=== PATIENT | male | born 1940 | race Caucasian/White ===

== ENCOUNTER 2017-12-06 12:53 | Emergency (ER) | payer MEDICARE, SELFPAY ==
[2017-12-06 13:02] VITALS: BP 101/45; PULSE 91; RESP 18; TEMP 36.8; O2SAT 94; BMI 25.9
--- NOTE | 2017-12-06 14:34 | [facility].EDGENADL ---
ED Disposition Clinical Impression: Abrasions of multiple sites Disposition: Home, Self-Care Condition on Discharge: Good Instructions: DI for Abrasion Additional Instructions: Change bandages twice daily, see your family MD in one to two days for recheck wounds; watch for infection; Tylenol as needed for pain; use nonstick dressings only to avoid painful dressing changes. Referrals: Ronit Isidro MD [Primary Care Provider] - - Critical Care Critical Care Time: No Attestation: On 12/06/17, the high probability of a clinically significant, sudden or life threatening deterioration of the following system(s) required my full and direct attention, intervention and personal management. The time I documented below is in addition to time spent performing reported procedures but includes the following listed in this critical care notation. Medical Decision Making Vital Signs: 12/06/17 13:02 Temperature 98.2 F Temperature Source Oral Pulse Rate [Right Brachial] 91 H Respiratory Rate 18 Blood Pressure [Right Arm] 101/45 Blood Pressure Mean [Right Arm] 63 Blood Pressure Source [Right Arm] Automatic Cuff Blood Pressure Position [Right Arm] Sitting 02 Sat by Pulse Oximetry 94 L Oxygen Delivery Method Room Air - Mikey Inquiry Pt receiving controlled substance: No General Adult HPI - General Chief complaint: Fall Stated complaint: AO 12/06/17 lac left arm and left leg hurting Mode of Arrival: Ambulatory Limitations: No Limitations Description of Symptoms (Recalled from ER Triage Doc. by RN): pt fell in parking lot at [employer] chasing his dog; laceration to right leg and left elbow - History of Present Illness HPI narrative: Fell on [place] with negative LOC. Prior to arrival. He tripped on dog. Sustained skin tears to left elbow and right lateral lower leg. No pain with weightbearing. No loss of motility; loss of sensation. Relieving factors: none Exacerbating factors: none - Related Data Home Medications Medication Instructions Recorded Confirmed Carvedilol [Carvedilol 25mg Tab] 12.5 mg PO BID 12/06/17 12/06/17 Clopidogrel Bisulfate [Plavix 75mg 75 mg PO DAILY 12/06/17 12/06/17 Tab] Isosorbide Mononitrate [Imdur 30mg 30 mg PO DAILY 12/06/17 12/06/17 ER tablet] Sitagliptin Phosphate [Januvia] 100 mg PO DAILY 12/06/17 12/06/17 Tamsulosin HCl [Flomax 0.4mg 0.4 mg PO DAILY 12/06/17 12/06/17 capsule] Allergies Allergy/AdvReac Type Severity Reaction Status Date / Time No Known Allergies Allergy Unverified 11/04/17 15:10 [facility] History Medical History: Reports:: Diabetes Mellitus Type 2 Denies:: Internal Pacemaker Other Surgeries: No: Pacemaker - *Social History Educational Level: Completed College Smoking Status: Former smoker Tobacco Type: cigarettes Smoking End Date: 27 years ago Alcohol Intake: never - Psychiatric History Expresses thoughts of harming self/others: None Suicide Plan Description: No Plan ROS Obtained: Yes All systems reviewed & no additional complaints Physical Exam - General General appearance: alert, in no apparent distress - Head Head exam: atraumatic, normocephalic, normal inspection - Eye Eye exam: Present: normal appearance, PERRL, EOMI - ENT ENT exam: Present: normal exam, normal oropharynx, mucous membranes moist, normal external ear exam - Neck Neck exam: Present: normal inspection, full ROM, trachea midline, meningismus. Absent: tenderness, lymphadenopathy - Chest Chest inspection: Present: normal inspection, symmetric chest wall rise. Absent: tenderness - Respiratory Respiratory exam: Absent: respiratory distress - Cardiovascular Cardiovascular exam: Present: other (No edema. Very refill brisk. Pulses full throughout.) - Extremities Exam Extremities exam: Present: full ROM. Absent: tenderness, normal capillary refill, pedal edema (Left elbow, shallow skin tear 10 cm in diameter with no foreign bodies or debris. C
[2017-12-06 15:26] VITALS: BP 123/71; PULSE 70; RESP 20
== END 2017-12-06 15:26 | disposition home or self-care (01) ==
PROVIDERS: Emergency Provider Emergency Medicine; Family Provider Internal Medicine Adolescent Medicine; PCP Emergency Medicine
DX: S50.312A Abrasion of left elbow, initial encounter (principal); S80.812A Abrasion, left lower leg, initial encounter; W01.0XXA Fall on same level from slipping, tripping and stumbling without subsequent striking against object, initial encounter; Y92.481 Parking lot as the place of occurrence of the external cause; Z79.899 Other long term (current) drug therapy; E11.9 Type 2 diabetes mellitus without complications; Z79.84 Long term (current) use of oral hypoglycemic drugs; Z95.0 Presence of cardiac pacemaker; Z87.891 Personal history of nicotine dependence
CPT/HCPCS: 99282

== ENCOUNTER 2019-01-08 18:02 | Inpatient (IN) ==
--- NOTE | 2019-01-08 18:15 | Emergency Department Note ---
ED Disposition Clinical Impression: Elevated troponin, Balanitis Cellulitis Qualifiers: Site of cellulitis: extremity Site of cellulitis of extremity: upper extremity Laterality: right Qualified Code(s): L03.113 - Cellulitis of right upper limb Vomiting Qualifiers: Vomiting type: unspecified Vomiting Intractability: non-intractable Nausea presence: with nausea Qualified Code(s): R11.2 - Nausea with vomiting, unspecified Disposition: Admitted as Observation Condition on Discharge: Fair - Critical Care Critical Care Time: No Attestation: On 01/08/19, the high probability of a clinically significant, sudden or life threatening deterioration of the following system(s) required my full and direct attention, intervention and personal management. The time I documented below is in addition to time spent performing reported procedures but includes the following listed in this critical care notation. Medical Decision Making - Mikey Inquiry Pt receiving controlled substance: No Vital Signs: 01/08/19 18:03 01/08/19 18:56 01/08/19 19:02 Temperature 100.5 F H Temperature Source Oral Pulse Rate [Left Radial] 113 H 107 H 110 H Respiratory Rate 16 Blood Pressure [Right Arm] 175/92 H 159/82 H 159/77 H Blood Pressure Mean [Right Arm] 119 107 104 Blood Pressure Source [Right Arm] Automatic Cuff Automatic Cuff Blood Pressure Position [Right Arm] Sitting Sitting 02 Sat by Pulse Oximetry 92 L 93 L 94 L Oxygen Delivery Method Room Air Nasal Cannula Oxygen Flow Rate (LPM) 2 01/08/19 20:00 Temperature Temperature Source Pulse Rate [Left Radial] 102 H Respiratory Rate 16 Blood Pressure [Right Arm] 157/93 H Blood Pressure Mean [Right Arm] 114 Blood Pressure Source [Right Arm] Automatic Cuff Blood Pressure Position [Right Arm] Supine 02 Sat by Pulse Oximetry 96 Oxygen Delivery Method Nasal Cannula Oxygen Flow Rate (LPM) 2 - Lab Data Lab Results 01/08/19 18:14: POC Glucose 227 H 01/08/19 18:20: WBC 16.4 H, RBC 5.22, Hgb 15.1, Hct 45.9, MCV 87.9, MCH 29.0, MCHC 33.0, RDW 14.3, Plt Count 143, MPV 9.2, Neut % (Auto) 87.9 H, Lymph % (Auto) 6.5 L, [place] % (Auto) 5.1, Eos % (Auto) 0.3, Baso % (Auto) 0.2, Neut # (Auto) 14.5 H, Lymph # (Auto) 1.1, [place] # (Auto) 0.8, Eos # (Auto) 0.1, Baso # ( Auto) 0.0, Total Counted 100, Neutrophils % (Manual) 82 H, Band Neutrophils % 12.0 H, Lymphocytes % (Manual) 6 L, Platelet Estimate Normal, RBC Morphology Normal 01/08/19 18:20: Sodium 141, Potassium 3.8, Chloride 104, Carbon Dioxide 24, Anion Gap 16.8 H, BUN 17, Creatinine 1.78 H, Estimated Creat Clear 40, Estimated GFR 37 L, Est GFR ( Amer) 45 L, Glucose 229 H, Calcium 8.9, Total Bilirubin 1.6 H, AST 7 L, ALT 20, Alkaline Phosphatase 73, Troponin I 0.12 H, Total Protein 7.6, Albumin 3.7, Globulin 3.9 H, Albumin/Globulin Ratio 0.9 L, Pl asma/Serum Alcohol < 3 01/08/19 18:20: Lactate 2.3 H 01/08/19 18:20: Influenza Type A Ag Negative, Influenza Type B Ag Negative 01/08/19 19:45: Urine Color Yellow, Urine Appearance Clear, Urine pH 5.5, Ur Specific Candor 1.015, Urine Protein Negative, Urine Glucose (UA) 3+, Urine Ketones 2+, Urine Blood Negative, Urine Nitrate Negative, Urine Bilirubin Negative, Urine Urobilinogen 0.2, Ur Leukocyte Esterase Negative, Urine RBC None, Urine WBC 3-5, Ur Squamous Epith Cells Occasional, Urine Bacteria Trace Result diagrams: 01/08/19 18:20 01/08/19 18:20 Orders (Tests/Meds): ED MEDICATIONS Generic Name Dose Route Start Last Admin Trade Name Freq PRN Reason Stop Dose Admin Sodium Chloride 1,000 mls @ 999 mls/hr 01/08/19 19:00 01/08/19 19:01 Sod Chlor 0.9% 1000ml Bag IV 01/08/19 20:00 999 mls/hr .Q1H1M KUMAR Administration Sodium Chloride 1,000 mls @ 999 mls/hr 01/08/19 19:30 01/08/19 19:57 Sod Chlor 0.9% 1000ml Bag IV 01/08/19 20:30 Not Given .Q1H1M KUMAR Sodium Chloride 2,590 mls @ 1,295 mls/hr 01/08/19 19:32 01/08/19 19:57 Sod Chlor 0.9% 1000ml Bag 30 ml/kg infuse over 2 hr (2590 ml) 01/08/19 21:31 1,295 mls/hr IV Administration .Q2H ONE Clindamycin Phosphate 600 mg/ 104 mls @ 104 mls/hr 01/08/19 20:00 Sodium Chloride IV 01/22/19 19:59 Q8H KUMAR Protocol Levofloxacin/Dextrose 750 mg in 150 mls @ 100 mls/hr 01/08/19 20:15 01/08/19 20:06 Levofloxacin 750mg/150ml Premix IV 01/22/19 20:14 100 mls/hr Q48H KUMAR Administration Protocol Sodium Chloride 10 ml 01/08/19 18:09 Saline Flush 10ml Syringe IV 02/07/19 18:08 NEEDED PRN Maintain IV Site Discontinued Medications Generic Name Dose Route Start Last Admin Trade Name Freq PRN Reason Stop Dose Admin Acetaminophen 650 mg 01/08/19 19:24 01/08/19 19:30 Acetaminophen 325mg Tab PO 01/08/19 19:25 650 mg ONCE ONE Administration Ondansetron HCl 4 mg 01/08/19 18:11 01/08/19 18:22 Zofran 4mg/2ml Vial IV 01/08/19 18:12 Not Given ONCE ONE ORDERS Category Date Time Status CT abdomen pelvis wo con Stat Cat Scan 01/08/19 18:[address] head/brain wo con Stat Cat Scan 01/08/19 18:09 Taken XR chest AP Stat Exams 01/08/19 18:16 Taken Urinalysis and Microscopic Stat Lab 01/08/19 19:45 Ordered Blood Culture Stat Micro 01/08/19 18:20 Received Wound Culture and Gram Stain Stat Micro 01/08/19 19:00 Ordered - CT Data CT Scan: Head, Abdomen, Pelvis Time Received: 19:[address] Reviewed: Yes: I have viewed the radiologist's interpretation Findings Narrative: CT scan interpreted by [facility] radiologist. Faxed report received and reviewed: Head: Age-related atrophy and chronic white matter ischemic changes, no evidence of acute intracranial abnormality. Mucosal thickening within the ethmoid air cells and right maxillary sinus area Abdomen and pelvis: Moderate enlargement of prostate, nonspecific. Bilateral renal cysts. Diverticulosis. - ECG Data Tracing #1 EKG interpreted by Raghavendra Watkins MD: Rhythm: sinus tachycardia Rate: 115 [place]: normal Ectopy: Premature atrial contractions Conduction: normal ST Segment Changes: none T Wave Changes: none Q Waves: none No evidence of acute ischemia or injury Prior electrocardiagrams reviewed. No change from prior tracings. - Physician Consults Physician Consulted: Eliz Time: 19:38 Reason -: Admission Comment/Response: Patient has a history of prostatitis and UTI. Obtain urine prior to administering antibiotics. Catheterize if necessary. Agrees to admit the patient to the hospital. We discussed the patient's clinical information, including history, exam, laboratory and radiology results and ED course. Per hospital procedure, I will write temporary bridge inpatient orders on the patient. Specific orders requested by the admitting physician: Levaquin and clindamycin. - Tissue Perfus/Sepsis Re-Eval Reperfusion Exam Performed: Yes Date Performed: 01/08/19 Time Performed: 20:07 Sepsis Follow-Up: Yes: Respiratory exam, Cardiovascular exam, Capillary refill, Peripheral pulse strength, Peripheral pulse location, Skin exam, Vital Signs - JUSTICE Score for Non-Stemi Age of Patient: 80-89 years old Heart Rate: 110-149 bpm Systolic Blood Pressure: 160-199 mmHg Serum Creatinine: 1.60-1.99 mg/dl CHF [place] Class: I-No CHF Other Risk Factors: None Non-Stemi Risk Score: 138 Medical Decision Narrative: Daughter, who is an RN and a pacemaker rep, called and I spoke with her. She states that the patient has diabetes, also the last time he was here he had renal insufficiency with a creatinine of 3. She also states that he had a cardiac cath several years ago that showed a 40% left main lesion. I reviewed his record. Saw him in this emergency department August 2017 at which time he was diagnosed with a ruptured appendix with intra-abdominal abscess and acute renal failure. He was transferred to [place] 7:30 PM: Daughter is now present. She says that she received a call earlier and stated that he was ashen, diaphoretic, and short of breath. She says he looks up to normal now. General Adult HPI - General Chief complaint: Nausea/Vomiting/Diarrhea Stated complaint: vomiting Time Seen by Provider: 01/08/19 18:10 Mode of Arrival: Ambulatory Limitations: No Limitations Description of Symptoms (Recalled from ER Triage Doc. by RN): to ed per pvt car with c/o vomiting starting at 3pm today pt denies any other symptoms. family reports pt became pale and "sweaty". cpta none - History of Present Illness HPI narrative: The patient was coming back to [place] today when he began getting red in the face and then began vomiting, multiple times. He reportedly became pale and sweaty. He denies headache, chest pain, abdominal pain. No diarrhea today but says he has had it intermittently in the past. States he feels slightly dizzy, describes it as a lightheadedness, not vertigo or spinning. As a red area on his right wrist that he says started yesterday. He thought it was an ingrown hair. He says he applied Neosporin. - Related Data Home Medications Medication Instructions Recorded Confirmed Carvedilol [Carvedilol 25mg Tab] 12.5 mg PO BID 12/06/17 01/08/19 Clopidogrel Bisulfate [Plavix 75mg 75 mg PO DAILY 12/06/17 01/08/19 Tab] Isosorbide Mononitrate [Imdur 30mg 30 mg PO DAILY 12/06/17 01/08/19 ER tablet] Sitagliptin Phosphate [Januvia] 100 mg PO DAILY 12/06/17 01/08/19 Tamsulosin HCl [Flomax 0.4mg 0.4 mg PO DAILY 12/06/17 01/08/19 capsule] Allergies Allergy/AdvReac Type Severity Reaction Status Date / Time No Known Allergies Allergy Unverified 11/04/17 15:10 [facility] History - Hepatitis A Screen Drug use history?: No High risk sexual behaviors?: No History of sexually transmitted infection?: No Currently employed?: No Childcare worker?: No Do you have indoor plumbing?: Yes Do you have electricity?: Yes Attestation statement:: This patient has been screened for Hepatitis A risk factors. Medical History: Reports:: Diabetes Mellitus Type 2 Denies:: Internal Pacemaker Other Surgeries: No: Pacemaker - Social History Smoking Status: Former smoker Tobacco Type: cigarettes Alcohol Intake: never Occupational Status: other - Psychiatric History Expresses thoughts of harming self/others: None Suicide Plan Description: No Plan ROS Obtained: Yes All systems reviewed & no additional complaints - Constitutional Constitutional: Denies chills, Denies fever(s) - ENT Ears, Nose, Mouth, and Throat: Denies nasal discharge, Denies sore throat - Cardiovascular Cardiovascular: Denies chest pain, Reports diaphoresis - Respiratory Respiratory: No cough, Yes dyspnea - Gastrointestinal Gastrointestingal: Reports: diarrhea, vomiting. Denies: abdominal pain - Genitourinary Male Genitourinary: Denies difficulty urinating, Denies flank pain - Integumentary/Breasts Comments: Has a rash on his penis. He is on some cream, 2 tubes, from Dr. Wellington for 2 weeks, but it does seem to be getting. He has had the same thing in the past, but it got better on cream at time. He is uncertain what the cream is, possibly an antifungal. - Neurologic Neurologic: Reports dizziness, Denies headache(s) Physical Exam - General General appearance: alert, in no apparent distress - Head Head exam: atraumatic, normocephalic, normal inspection - Eye Eye exam: Present: normal appearance, PERRL, EOMI. Absent: scleral icterus - ENT ENT exam: Present: normal exam, mucous membranes moist - Neck Neck exam: Present: normal inspection, full ROM, trachea midline. Absent: meningismus - Chest Chest inspection: Present: normal inspection, symmetric chest wall rise - Respiratory Respiratory exam: Present: normal lung sounds bilaterally. Absent: respiratory distress - Cardiovascular Cardiovascular exam: Present: normal rhythm, tachycardia, normal heart sounds - Abdominal Exam Abdominal exam: Present: soft. Absent: distention, tenderness - exam: Present: circumcised. Absent: testicular tenderness, urethral discharge, scrotal swelling - Expanded Exam Comment: Patchy area to the areas on distal penile shaft and glans with some maculopapular areas on the glans. Some small areas of exfoliation around the banegas of the glans. No discharge from lesions or from the urethra. No edema. Appears consistent with balanitis. - Expanded Upper Extremity Exam Right Comment: Band-Aid present on ulnar aspect of right wrist. When removed, there is seen to be an area of flat vesicle from which tiny amount of clear fluid can be expressed, surrounded by erythema approximately 7 cm diameter mild edema. Tender to palpation. Good range of motion of right wrist with some mild soreness. No joint effusion noted. - Neurological Exam Neurological exam: Present: alert, oriented X3, CN II-XII intact. Absent: nor mal gait (unsteady gait ), motor sensory deficit - Psychiatric Psychiatric exam: Present: normal affect, normal mood - Skin Skin exam: Present: warm, dry
[2019-01-08 18:34] LABS: Basophils % 0.2 % (0.1-2.0); Eosinophils # 0.1 K/mm3 (0.0-0.4); Eosinophils % 0.3 % (0.1-12.0); Hematocrit 45.9 % (42.0-52.0); Hemoglobin 15.1 g/dL (14.1-18.0); Lymphocytes # 1.1 K/mm3 (0.7-4.5); Lymphocytes % 6.5 % (10-50); Mean Corpuscular Volume 87.9 fl (80-94); Mean Platelet Volume 9.2 fl (7.4-10.4); Monocytes # 0.8 K/mm3 (0.1-1.0); Monocytes % 5.1 % (1.7-9.3); Neutrophils # 14.5 K/mm3 (1.8-7.8); Neutrophils % 87.9 % (37.0-80.0); Platelet Count 143 K/mm3 (142-424); Red Blood Count 5.22 M/mm3 (4.60-6.20); Red Cell Distribution Width 14.3 % (11.5-17.5); White Blood Count 16.4 K/mm3 (4.8-10.8)
[2019-01-08 18:52] LABS: Alanine Aminotransferase 20 U/L (12-78); Albumin Level 3.7 gm/dL (3.4-5.0); Albumin/Globulin Ratio 0.9 (1.1-1.8); Alkaline Phosphatase 73 U/L (46-116); Anion Gap 16.8 mEq/L (5-15); Aspartate Amino Transferase 7 U/L (15-37); Bilirubin,Total 1.6 mg/dL (0.2-1.0); Blood Urea Nitrogen 17 mg/dL (7-18); Calcium 8.9 mg/dL (8.5-10.1); Carbon Dioxide 24 mmol/L (21.0-32.0); Chloride 104 mmol/L (98-107); Ethyl Alcohol < 3 mg/dL (0-99); Globulin 3.9 gm/dl (1.3-3.2); Glucose 229 mg/dL (74-106); Potassium 3.8 mmoL/L (3.5-5.1); Sodium 141 mmol/L (136-145); Total Protein,Serum 7.6 gm/dL (6.4-8.2)
[2019-01-08 18:56] LABS: Lymphocytes % 6 % (10-50); Neutrophils % 82 % (42-76); RBC Morphology Normal; Total Cells Counted 100
[2019-01-08 19:49] LABS: Microscopic, Urine URINE MICROSCOPIC (MICROSCOPIC)
[2019-01-08 19:50] LABS: Appearance,Urine CLEAR (Clear); Bilirubin,Urine Negative (Negative); Blood, Urine Negative (Negative); Color,Urine YELLOW (Yellow); Glucose,Urine (UA) 3+ (Negative); Ketones,Urine 2+ (Negative); Leukocyte Esterase,Urine Negative (Negative); PH,Urine 5.5 (5.0-8.5); Protein,Urine Negative (Negative); Specific Gravity, Urine 1.015 (1.005-1.030); Urobilinogen,Urine 0.2 EU/dl (0.2)
[2019-01-08 19:56] LABS: Bacteria,Urine Trace /lpf; Squamous Epithelial Cell,Urine Occasional #/hpf (0-5)
[2019-01-09 06:33] LABS: Basophils % 0.1 % (0.1-2.0); Eosinophils % 0.1 % (0.1-12.0); Hematocrit 38.6 % (42.0-52.0); Lymphocytes # 1.7 K/mm3 (0.7-4.5); Mean Corpuscular HGB Conc 33.6 g/dL (31.8-35.4); Mean Corpuscular Volume 86.2 fl (80-94); Mean Platelet Volume 8.9 fl (7.4-10.4); Monocytes # 1.4 K/mm3 (0.1-1.0); Monocytes % 7.9 % (1.7-9.3); Neutrophils # 14.2 K/mm3 (1.8-7.8); Neutrophils % 81.8 % (37.0-80.0); Platelet Count 112 K/mm3 (142-424); Red Blood Count 4.48 M/mm3 (4.60-6.20); Red Cell Distribution Width 14.3 % (11.5-17.5); White Blood Count 17.3 K/mm3 (4.8-10.8)
[2019-01-09 06:40] LABS: Anion Gap 16.5 mEq/L (5-15); Potassium 3.5 mmoL/L (3.5-5.1)
[2019-01-09 07:43] LABS: Lymphocytes % 5 % (10-50); Monocytes % 6 % (2-9); Neutrophils % 82 % (42-76); Total Cells Counted 100
[2019-01-09 07:44] LABS: RBC Morphology Normal
--- NOTE | 2019-01-09 08:10 | History & Physical Report ---
*Admission Date: 01/08/19 *Chief complaint: Nausea/vomiting/fever *History of present illness: 78-year-old white male with multiple medical problems who presented to the emergency department with febrile illness and vomiting. He had been enjoying fairly good health and active status over the last couple of weeks and went to [place] on the day of admission with some friends and on the way home became acutely and suddenly ill with vomiting and abdominal pain and feelings of presyncope. Brought to the emergency department where he was found to have fever, but his vomiting had stopped and he felt less syncopal. Workup in the ER showed elevated white blood cell count and minimally elevated lactate level as well as minimal prerenal azotemia but no other source of infection including CT scan of chest/abdomen/pelvis and a negative CT of his head that was done because of syncope and some dizziness. He was found to have cellulitis on the right wrist that he states has been there for 3 or 4 days. He thought he had a spot consistent with an ingrown hair 3 or 4 days ago and washed it and placed near an ointment on the lesion and then covered it with an occlusive bandage. He notices it is become markedly worse over the last couple of days and has become extremely painful. This lesion was cultured. Because of his fever and lab abnormalities he was admitted to hospital for IV antibiotics while we await further delineation of the cause of the febrile illness. [facility] History I have reviewed the patient's past medical history: Yes Medical History: Reports:: Diabetes Mellitus Type 2, Hypertension Denies:: Cancer, Internal Pacemaker, MRSA *Have you ever received a pneumonia vaccine?: Yes *Have you received a flu vaccine this season?: Yes Other Medical History: Reports: Arthritis Other Surgeries: Yes: Appendectomy, Cardiac Catheterization, Colonoscopy. No: Pacemaker Amputation: No Fractures: Yes ((L) shoulder) - *Social History Educational Level: Attended College Smoking Status: Former smoker Tobacco Type: cigarettes # Packs/Day (cigarettes): 3 Alcohol Intake: never *Occupational Status:: retired Housing: apartment Household Members: none *Travel in the last 8 weeks: None - Psychiatric History Expresses thoughts of harming self/others: None Suicide Plan Description: No Plan Family Hx:: Diabetes, Heart Attack, Hyperlipidemia, Hypertension, Stroke Review of Systems - Review of Systems Review of systems:: pertinent systems reviewed and negative unless documented below - Constitutional Reports fever(s), Denies anorexia, Denies body ache(s), Denies chills - Eyes Denies blind spots, Denies blurry vision, Denies change in vision - ENT Denies abnormal hearing, Denies bleeding gums - *Cardiovascular Denies chest pain, Denies shortness of breath, Denies generalized swelling, Denies irregular heart rhythm - *Respiratory Denies change in phlegm color, Denies chest congestion, Denies cough, Denies shortness of breath - *Gastrointestinal Reports abdominal pain, Denies change in bowel habits, Denies change in stools, Denies coffee ground vomit, Denies loose stools, Denies vomiting blood, Denies bright, red blood in stools, Denies pain with swallowing, Denies constant urge to pass stool - *Genitourinary Denies difficulty urinating - *Musculoskeletal Reports muscle weakness, Denies abnormal walking, Denies joint pain - Integumentary/Breasts Reports changing lesions, Reports redness, Denies acne, Denies hair loss, Denies change in skin color - *Neurologic Reports dizziness, Denies headache(s), Denies seizure-like activity - Psychiatric Denies abnormal sleep pattern - Endocrine Denies cold intolerance, Denies excessive sweating Meds Home Medications Medication Instructions Recorded Confirmed Type Carvedilol [Carvedilol 25mg Tab] 12.5 mg PO BID 12/06/17 01/08/19 History Clopidogrel Bisulfate [Plavix 75mg 75 mg PO DAILY 12/06/17 01/08/19 History Tab] Sitagliptin Phosphate [Januvia] 100 mg PO DAILY 12/06/17 01/08/19 History Tamsulosin HCl [Flomax 0.4mg 0.4 mg PO DAILY 12/06/17 01/08/19 History capsule] Isosorbide Mononitrate [Imdur 30mg 30 mg PO DAILY 01/08/19 01/08/19 History ER tablet] Allergies Allergy/AdvReac Type Severity Reaction Status Date / Time No Known Allergies Allergy Unverified 11/04/17 15:10 Exam Vital signs and Labs for Last 24 Hours: Temp Pulse Resp BP Pulse Ox 98.9 F 101 H 20 131/68 96 01/09/19 04:00 01/09/19 04:00 01/09/19 04:00 01/09/19 04:00 01/09/19 04:00 Laboratory Results - last 24 hr 01/08/19 18:14: POC Glucose 227 H 01/08/19 18:20: WBC 16.4 H, RBC 5.22, Hgb 15.1, Hct 45.9, MCV 87.9, MCH 29.0, MCHC 33.0, RDW 14.3, Plt Count 143, MPV 9.2, Neut % (Auto) 87.9 H, Lymph % (Auto) 6.5 L, [place] % (Auto) 5.1, Eos % (Auto) 0.3, Baso % (Auto) 0.2, Neut # (Auto) 14.5 H, Lymph # (Auto) 1.1, [place] # (Auto) 0.8, Eos # (Auto) 0.1, Baso # (Auto) 0.0, Total Counted 100, Neutrophils % (Manual) 82 H, Band Neutrophils % 12.0 H, Lymphocytes % (Manual) 6 L, Platelet Estimate Normal, RBC Morphology Normal 01/08/19 18:20: Sodium 141, Potassium 3.8, Chloride 104, Carbon Dioxide 24, Anion Gap 16.8 H, BUN 17, Creatinine 1.78 H, Estimated Creat Clear 40, Estimated GFR 37 L, Est GFR ( Amer) 45 L, Glucose 229 H, Calcium 8.9, Total Bilirubin 1.6 H, AST 7 L, ALT 20, Alkaline Phosphatase 73, Troponin I 0.12 H, Total Protein 7.6, Albumin 3.7, Globulin 3.9 H, Albumin/Globulin Ratio 0.9 L, Plasma/Serum Alcohol < 3 01/08/19 18:20: Lactate 2.3 H 01/08/19 18:20: Influenza Type A Ag Negative, Influenza Type B Ag Negative 01/08/19 19:45: Urine Color Yellow, Urine Appearance Clear, Urine pH 5.5, Ur Specific [place] 1.015, Urine Protein Negative, Urine Glucose (UA) 3+, Urine Ketones 2+, Urine Blood Negative, Urine Nitrate Negative, Urine Bilirubin Negative, Urine Urobilinogen 0.2, Ur Leukocyte Esterase Negative, Urine RBC None, Urine WBC 3-5, Ur Squamous Epith Cells Occasional, Urine Bacteria Trace 01/08/19 21:25: POC Glucose 225 H 01/08/19 22:18: Lactate 2.0 01/08/19 23:20: Troponin I 0.11 H 01/09/19 02:15: Troponin I 0.11 H 01/09/19 05:49: POC Glucose 150 H 01/09/19 06:18: WBC 17.3 H, RBC 4.48 L, Hgb 13.0 L D, Hct 38.6 L, MCV 86.2, MCH 29.0, MCHC 33.6, RDW 14.3, Plt Count 112 L, MPV 8.9, Neut % (Auto) 81.8 H, Lymph % (Auto) 10.0, [place] % (Auto) 7.9, Eos % (Auto) 0.1, Baso % (Auto) 0.1, Neut # (Auto) 14.2 H, Lymph # (Auto) 1.7, [place] # (Auto) 1.4 H, Eos # (Auto) 0.0, Baso # (Auto) 0.0, Total Counted 100, Neutrophils % (Manual) 82 H, Band Neutrophils % 5.0, Lymphocytes % (Manual) 5 L, Atypical Lymphs % 2.0, Monocytes % (Manual) 6, Platelet Estimate Slight decrease, RBC Morphology Normal 01/09/19 06:18: Sodium 142, Potassium 3.5, Chloride 108 H, Carbon Dioxide 21, Anion Gap 16.5 H, BUN 16, Creatinine 1.47 H, Estimated Creat Clear 49, Estimated GFR 46 L, Est GFR ( Amer) 56 L D, Glucose 152 H D, Calcium 8.0 L D I & O for Last 24 hours: Intake & Output 01/06/19 01/07/19 01/08/19 01/09/19 11:59 11:59 11:59 11:59 Intake Total 976 / 976 Balance 976 / 976 Weight 189 lb 8 oz Microbiology Reports for the Last 24 Hours: Microbiology 01/08/19 19:00 Wrist - Right Gram Stain - Final Narrative: Patient is awake, alert, states that he feels much better than he did on presentation to the emergency department. He is alert, oriented x3. Oropharynx clear. No sinus tenderness. No JVD. No cervical or supraclavicular lymphadenitis. Lungs are clear. Heart rate regular without murmurs. Abdomen soft and nontender. No peripheral edema or clubbing. Cranial nerves are symmetric. He can move all arms and legs well. His right wrist has an extremely painful erysipelas-looking lesion that is approximately 6 cm x 5 cm in a roughly rectangular patch on the dorsal/ulnar aspect of the right wrist. There is a very small rounded sloughing lesion at the distal edge of the erysipelas patch but no active drainage. There is no red streaking. No fluctuance or boil formation. Legal Consultant strength is normal in the hand. Radial and ulnar pulses are normal. Left wrist is normal. No other infectious type lesions or other lesions over and above age-related/benign-appearing moles. Assessment and Plan (1) Acute febrile illness Current visit: Yes Status: Acute Category: Medical Code(s): R50.9 - Fever, unspecified Radiographic studies negative. Await blood cultures. Urinalysis looks clean. Possible source of cellulitis. (2) Cellulitis Current visit: Yes Status: Acute Qualifiers: Site of cellulitis: extremity Site of cellulitis of extremity: upper extremity Laterality: right Qualified Code(s): L03.113 - Cellulitis of right upper limb Category: Medical Code(s): L03.90 - Cellulitis, unspecified Patient on Levaquin and clindamycin. Cultures from cellulitis area pending. Will stop Neosporin as this could possibly be an allergic reaction. Triamcinolone on the lesion for comfort. Check x-ray of the wrist and sed rate today (3) Elevated troponin Current visit: Yes Status: Acute Category: Medical Code(s): R74.8 - Abnormal levels of other serum enzymes No change overnight, indeterminate levels appears to be at patient's baseline (4) Vomiting Current visit: Yes Status: Acute Qualifiers: Vomiting type: unspecified Vomiting Intractability: non-intractable Nausea presence: with nausea Qualified Code(s): R11.2 - Nausea with vomiting, unspecified Category: Medical Code(s): R11.10 - Vomiting, unspecified Resolved. Patient eating comfortably this morning. (5) Diabetes type 2, controlled Current visit: Yes Status: Acute Category: Medical Code(s): E11.9 - Type 2 diabetes mellitus without complications Complicates care especially with infectious issues. Monitor closely. (6) Leukocytosis Current visit: Yes Status: Acute Category: Medical Code(s): D72.829 - Elevated white blood cell count, unspecified Probably related to cellulitis/febrile illness as above, monitor tomorrow.
--- NOTE | 2019-01-09 08:22 | Pharmacy Consult Notes ---
[facility] Pharmacy VTE Monitoring - Patient Demographics Admission date: 01/08/19 Report Date: 01/09/19 Time: 08:22 Allergies/Adverse Reactions: Patient Allergies No Known Allergies Allergy (Unverified 11/04/17 15:10) Height: 1.8 m Weight: 85.956 kg Patient Problems: Current Active Problems Cellulitis (Acute) Elevated troponin (Acute) Vomiting (Acute) Balanitis (Acute) Acute febrile illness (Acute) Diabetes type 2, controlled (Acute) Leukocytosis (Acute) - VTE Risk Labs: VTE Related Lab Results Hgb 13.0 g/dL (14.1-18.0) L D 01/09/19 06:18 Hct 38.6 % (42.0-52.0) L 01/09/19 06:18 Plt Count 112 K/mm3 (142-424) L 01/09/19 06:18 BUN 16 mg/dL (7-18) 01/09/19 06:18 Creatinine 1.47 mg/dL (0.70-1.30) H 01/09/19 06:18 Estimated Creat Clear 49 mL/min (50-200) 01/09/19 06:18 VTE Risk Level: Low Risk - Prophylaxis VTE Prophylaxis Ordered?: Yes Types of VTE Prophylaxis: TEDS Knee High Location of Applied Device: Bilateral Lower Extremeties - VTE Diagnosis Confirmed Treatment or plan recommended: Continue Current Treatment
[2019-01-10 06:50] LABS: Basophils % 0.2 % (0.1-2.0); Eosinophils # 0.2 K/mm3 (0.0-0.4); Eosinophils % 1.2 % (0.1-12.0); Hematocrit 33.8 % (42.0-52.0); Hemoglobin 11.5 g/dL (14.1-18.0); Lymphocytes # 1.9 K/mm3 (0.7-4.5); Lymphocytes % 15.1 % (10-50); Mean Corpuscular Hemoglobin 29.2 pg (27.0-31.2); Mean Platelet Volume 8.7 fl (7.4-10.4); Monocytes # 0.7 K/mm3 (0.1-1.0); Monocytes % 5.5 % (1.7-9.3); Neutrophils # 9.6 K/mm3 (1.8-7.8); Neutrophils % 77.9 % (37.0-80.0); Platelet Count 108 K/mm3 (142-424); Red Blood Count 3.94 M/mm3 (4.60-6.20); Red Cell Distribution Width 14.2 % (11.5-17.5); White Blood Count 12.3 K/mm3 (4.8-10.8)
[2019-01-10 06:54] LABS: Albumin Level 2.5 gm/dL (3.4-5.0); Albumin/Globulin Ratio 0.8 (1.1-1.8); Anion Gap 14.5 mEq/L (5-15); Bilirubin,Total 1.2 mg/dL (0.2-1.0); Calcium 7.9 mg/dL (8.5-10.1); Potassium 3.5 mmoL/L (3.5-5.1); Total Protein,Serum 5.5 gm/dL (6.4-8.2)
--- NOTE | 2019-01-10 08:07 | Progress Note ---
Internal Medicine - PN: Subj *Date: 01/10/19 *Time: 08:04 Interval history: Overall patient feels better, no vomiting. No pains. No disorientation. No feelings of presyncope. His right wrist continues to be painful but he notes that it is less so and the area of redness is less after triamcinolone treatment. I reviewed radiology results and discussed case with radiologist about his CT scan of wrist from yesterday. Exam Vital signs and Labs for Last 24 Hours: Temp Pulse Resp BP Pulse Ox 98.3 F 84 18 139/73 92 L 01/10/19 07:44 01/10/19 07:44 01/10/19 07:44 01/10/19 07:44 01/10/19 07:44 Laboratory Results - last 24 hr 01/09/19 06:18: ESR 22 H 01/09/19 09:42: Stl Aeromonas (PCR) Not detected, Stl C. cayetanensis PCR Not detected, Stool Rotavirus (PCR) Not detected, Stl Adenov F 40/41 PCR Not detected, Stool Astrovirus (PCR) Not detected, Stool Campylobacter PCR Not detected, Stl C.difficile Tox PCR Not detected, Stool Cryptosporidium PCR Not detected, Stl E.coli Shiga Tox PCR Not detected, Stool E coli O157 PCR Not detected, Stl Enterotoxigenic E PCR Not detected, Stool EPEC (PCR) Not detected, Stool EAEC (PCR) Not detected, Stl E. histolytica PCR Not detected, Stool Giardia Lamblia PCR Not detected, Stool Salmonella PCR Not detected, Stool Sapovirus (PCR) Not detected, Stl P. shigelloides PCR Not detected, Stl Shigella/EIEC PCR Not detected, St Y.enterocolitica PCR Not detected, Stool Vibrio (PCR) Not detected, Stl Vibrio cholerae PCR Not detected, Stl Norovirus GI/GII PCR Not detected 01/09/19 12:06: POC Glucose 145 H 01/09/19 17:06: POC Glucose 131 H 01/09/19 20:38: POC Glucose 137 H 01/10/19 06:21: WBC 12.3 H D, RBC 3.94 L, Hgb 11.5 L, Hct 33.8 L, MCV 86.0, MCH 29.2, MCHC 34.0, RDW 14.2, Plt Count 108 L, MPV 8.7, Neut % (Auto) 77.9, Lymph % (Auto) 15.1, [place] % (Auto) 5.5, Eos % (Auto) 1.2, Baso % (Auto) 0.2, Neut # (Auto) 9.6 H, Lymph # (Auto) 1.9, [place] # (Auto) 0.7, Eos # (Auto) 0.2, Baso # (Auto) 0.0 01/10/19 06:21: Sodium 141, Potassium 3.5, Chloride 110 H, Carbon Dioxide 20 L, Anion Gap 14.5, BUN 16, Creatinine 1.31 H, Estimated Creat Clear 55, Estimated GFR 53 L, Est GFR ( Amer) 64, Glucose 109 H, Calcium 7.9 L, Total Bilirubin 1.2 H, AST 9 L D, ALT 14 D, Alkaline Phosphatase 50, Total Protein 5.5 L D, Albumin 2.5 L, Globulin 3.0, Albumin/Globulin Ratio 0.8 L 01/10/19 06:25: POC Glucose 110 I & O for Last 24 hours: Intake & Output 01/07/19 01/08/19 01/09/19 01/10/19 11:59 11:59 11:59 11:59 Intake Total 1296 / 1296 840 / 840 Output Total 400 / 400 Balance 1296 / 1296 440 / 440 Weight 189 lb 8 oz Microbiology Reports for the Last 24 Hours: Microbiology 01/08/19 19:00 Wrist - Right Gram Stain - Final 01/08/19 19:00 Wrist - Right Wound Culture - Preliminary Gram Positive Cocci Narrative: Patient is pleasant, alert, oriented x3. Heart rate regular. Soft, nontender. Lungs are clear bilaterally with good air movement. He has no edema in his left hand or both feet, able of all extremities well and has no symmetric neurologic deficits. His right wrist is swollen and tender from the MCP joints into the ulnar aspect of the dorsal aspect of the wrist. The red area previously described is less intensely red and slightly smaller but still very prominent. Assessment and Plan (1) Acute febrile illness Current visit: Yes Status: Acute Category: Medical Code(s): R50.9 - Fever, unspecified (2) Cellulitis Current visit: Yes Status: Acute Qualifiers: Site of cellulitis: extremity Site of cellulitis of extremity: upper extremity Laterality: right Qualified Code(s): L03.113 - Cellulitis of right upper limb Category: Medical Code(s): L03.90 - Cellulitis, unspecified (3) Elevated troponin Current visit: Yes Status: Acute Category: Medical Code(s): R74.8 - Abnormal levels of other serum enzymes (4) Vomiting Current visit: Yes Status: Acute Qualifiers: Vomiting type: unspecified Vomiting Intractability: non-intractable N ausea presence: with nausea Qualified Code(s): R11.2 - Nausea with vomiting, unspecified Category: Medical Code(s): R11.10 - Vomiting, unspecified (5) Diabetes type 2, controlled Current visit: Yes Status: Acute Category: Medical Code(s): E11.9 - Type 2 diabetes mellitus without complications (6) Leukocytosis Current visit: Yes Status: Acute Category: Medical Code(s): D72.829 - Elevated white blood cell count, unspecified - Assessment and plan all Dx Assessment and Plan for all problems:: Overall patient status seems improved. Kidney function is improved, fever curve has improved. White count is down. X-rays and CT scan reports have raised concern about osteomyelitis in the hand. We will obtain MRI or bone scanning tomorrow and involve orthopedics at that point. Continue antibiotics at this point. May change to a once daily antibiotic regimen depending on need for ongoing therapy based on osteomyelitis evaluation tomorrow.
--- NOTE | 2019-01-11 08:01 | Progress Note ---
Internal Medicine - PN: Subj *Date: 01/11/19 *Time: 07:59 Interval history: Overall patient feels well. No complaints of chest pressure shortness of air, no complaints of urine or stool change. Continues to complain of right wrist pain but notes it slightly improved. Exam Vital signs and Labs for Last 24 Hours: Temp Pulse Resp BP Pulse Ox 98.1 F 76 18 146/78 H 95 01/11/19 07:15 01/11/19 07:15 01/11/19 07:15 01/11/19 07:15 01/11/19 07:15 Laboratory Results - last 24 hr 01/10/19 11:13: POC Glucose 104 01/10/19 16:28: POC Glucose 106 01/10/19 20:56: POC Glucose 145 H 01/11/19 05:52: POC Glucose 116 H I & O for Last 24 hours: Intake & Output 01/08/19 01/09/19 01/10/19 01/11/19 11:59 11:59 11:59 11:59 Intake Total 1296 / 1296 840 / 840 7403 / 7403 Output Total 400 / 400 1950 / 1950 Balance 1296 / 1296 440 / 440 5453 / 5453 Weight 189 lb 8 oz Microbiology Reports for the Last 24 Hours: Microbiology 01/08/19 19:00 Wrist - Right Gram Stain - Final 01/08/19 19:00 Wrist - Right Wound Culture - Final Staphylococcus epidermidis 01/08/19 18:20 Blood Blood Culture - Preliminary NO GROWTH AFTER 48 HOURS 01/08/19 18:20 Blood Blood Culture - Preliminary NO GROWTH AFTER 48 HOURS Narrative: Awake, alert. Oriented x3. Pharynx clear, no JVD. Lung clear in the anterior and posterior george. Heart rate regular. No murmurs. Abdomen soft. No pedal edema. Right wrist is slightly less swollen but remains unchanged in regards to the cellulitis component. Assessment and Plan (1) Acute febrile illness Current visit: Yes Status: Acute Category: Medical Code(s): R50.9 - Fever, unspecified (2) Cellulitis Current visit: Yes Status: Acute Qualifiers: Site of cellulitis: extremity Site of cellulitis of extremity: upper extremity Laterality: right Qualified Code(s): L03.113 - Cellulitis of right upper limb Category: Medical Code(s): L03.90 - Cellulitis, unspecified (3) Elevated troponin Current visit: Yes Status: Acute Category: Medical Code(s): R74.8 - Abnormal levels of other serum enzymes (4) Vomiting Current visit: Yes Status: Acute Qualifiers: Vomiting type: unspecified Vomiting Intractability: non-intractable Nausea presence: with nausea Qualified Code(s): R11.2 - Nausea with vomiting, unspecified Category: Medical Code(s): R11.10 - Vomiting, unspecified (5) Diabetes type 2, controlled Current visit: Yes Status: Acute Category: Medical Code(s): E11.9 - Type 2 diabetes mellitus without complications (6) Leukocytosis Current visit: Yes Status: Acute Category: Medical Code(s): D72.829 - Elevated white blood cell count, unspecified - Assessment and plan all Dx Assessment and Plan for all problems:: Suspicious findings x-ray and see for osteomyelitis. Plan will be to do MRI today -long-term IV antibiotics if this indicates osteomy this. If negative for osteomyelitis will transition to p.o. antibiotics and plan for outpatient therapy.
--- NOTE | 2019-01-11 16:20 | Discharge Summary ---
General - General Admission date:: 01/09/19 Discharge date: 01/11/19 HPI HPI: 78-year-old white male with multiple medical problems who presented to the emergency department with febrile illness and vomiting. He had been enjoying fairly good health and active status over the last couple of weeks and went to [place] on the day of admission with some friends and on the way home became acutely and suddenly ill with vomiting and abdominal pain and feelings of presyncope. Brought to the emergency department where he was found to have fever, but his vomiting had stopped and he felt less syncopal. Workup in the ER showed elevated white blood cell count and minimally elevated lactate level as well as minimal prerenal azotemia but no other source of infection including CT scan of chest/abdomen/pelvis and a negative CT of his head that was done because of syncope and some dizziness. He was found to have cellulitis on the right wrist that he states has been there for 3 or 4 days. He thought he had a spot consistent with an ingrown hair 3 or 4 days ago and washed it and placed near an ointment on the lesion and then covered it with an occlusive bandage. He notices it is become markedly worse over the last couple of days and has become extremely painful. This lesion was cultured. Because of his fever and lab abnormalities he was admitted to hospital for IV antibiotics while we await further delineation of the cause of the febrile i llness. Hospital Course Hospital Course: Patient was admitted, antibiotics were started, patient improved very nicely with fluids and antibiotics, and blood cultures, sputum cultures and urine cultures were negative. Serologic testing for influenza was also negative. Culture of right wrist wound revealed staph epidermidis, considered to be a contaminant. X-ray of the wrist showed possible osteomyelitis, CT scan done over the weekend also was indeterminate and patient was subjected to MRI scanning today which revealed "no convincing evidence of osteomyelitis." Patient's improvement was very nice, ate and drank well over the last couple of days with no fevers and leukocytosis improved. Patient will be discharged with p.o. antibiotics and ointments for cellulitis with close follow-up in my office on Friday. Objective Vital signs: Temp Pulse Resp BP Pulse Ox 97.6 F 94 H 17 136/64 96 01/11/19 15:55 01/11/19 15:55 01/11/19 15:55 01/11/19 15:55 01/11/19 15:55 Narrative: Patient is alert. Pleasant. Oriented x3. Able to get up, walk around the room , urinating and having normal bowel movements. Heart rate regular. Lungs clear. Abdomen soft, no edema or clubbing. Wrist exam improving. See notes from this morning. Results Labs on day of discharge: Labs from last 24 hours 01/11/19 01/10/19 01/10/19 05:52 20:56 16:28 POC Glucose 116 H 145 H 106 Preliminary micro results at discharge 01/08/19 18:20 Blood Culture - Preliminary Blood NO GROWTH AFTER 48 HOURS 01/08/19 18:20 Blood Culture - Preliminary Blood NO GROWTH AFTER 48 HOURS DS: Diagnosis - Discharge Diagnosis (1) Acute febrile illness Status: Resolved (2) Cellulitis Status: Acute (3) Elevated troponin Status: Resolved (4) Vomiting Status: Resolved (5) Diabetes type 2, controlled Status: Chronic (6) Leukocytosis Status: Resolved Discharge Plan - Patient Discharge Instructions ACTIVITY: Continue current activity DIET: continue same diet Patient Instructions: Cardiac Troponin, Cellulitis, DI for Vomiting -- Adult, Nausea and Vomiting-Adult - Follow up Plan Follow up with: Nigel Wellington MD [Primary Care Provider] - 01/15/19 Disposition: Home, Self-Usp Medications: Home Medications Medication Instructions Recorded Confirmed Type Carvedilol [Carvedilol 25mg Tab] 12.5 mg PO BID 12/06/17 01/08/19 History Clopidogrel Bisulfate [Plavix 75mg 75 mg PO DAILY 12/06/17 01/08/19 History Tab] Sitagliptin Phosphate [Januvia] 100 mg PO DAILY 12/06/17 01/08/19 History Isosorbide Mononitrate [Imdur 30mg 30 mg PO DAILY 01/08/19 01/08/19 History ER tablet] Simvastatin 40 mg PO HS 01/09/19 01/09/19 History Cefdinir [Omnicef 300mg Capsule] 300 mg PO BID #14 cap 01/11/19 Rx Mupirocin [Mupirocin 2% UD oint 1 gm TP TID #7 applic 01/11/19 Rx 1gm Topical syr] Prescriptions/Medication Reconciliation: New Mupirocin [Mupirocin 2% UD oint 1gm Topical syr] 1 gm TP TID #7 applic Cefdinir [Omnicef 300mg Capsule] 300 mg PO BID #14 cap Continue Sitagliptin Phosphate [Januvia] 100 mg PO DAILY Clopidogrel Bisulfate [Plavix 75mg Tab] 75 mg PO DAILY Carvedilol [Carvedilol 25mg Tab] 12.5 mg PO BID Isosorbide Mononitrate [Imdur 30mg ER tablet] 30 mg PO DAILY Simvastatin 40 mg PO HS
== END 2019-01-11 16:54 | disposition home or self-care (01) | DRG 603 ==
LOC: ER 18:02 → 2ND 18:02
PROVIDERS: ADMIT Internal Medicine Adolescent Medicine; ATTEND Internal Medicine Adolescent Medicine
CPT/HCPCS: 36415; 70450; 71010; 71045; 73110; 73200; 73223; 74176; 80048; 80053; 81001; 82962; 83605; 84484; 85007; 85025; 85651; 87040; 87070; 87077; 87186; 87205; 87275; 87276; 87506; 93005; 96365; 96366; 99285; A9576; G0378; J1956

== ENCOUNTER 2019-05-23 17:37 | Observation (INO) ==
--- NOTE | 2019-05-23 17:59 | Emergency Department Note ---
ED Disposition Condition on Discharge: Fair - Critical Care Critical Care Time: No <SapphiremosheAmarilismalvin - Last Filed: 05/23/19 20:06> <Raghavendra Watkins - Last Filed: 05/23/19 21:56> Clinical Impression: Elevated d-dimer, Renal insufficiency Community acquired pneumonia Qualifiers: Laterality: right Lung location: lower lobe of lung Qualified Code(s): J18.1 - Lobar pneumonia, unspecified organism Disposition: Still a Patient Attestation: On 05/23/19, the high probability of a clinically significant, sudden or life t hreatening deterioration of the following system(s) required my full and direct attention, intervention and personal management. The time I documented below is in addition to time spent performing reported procedures but includes the following listed in this critical care notation. Medical Decision Making - Mikey Inquiry Pt receiving controlled substance: No Mikey was queried for this patient: No - Lab Data Result diagrams: 05/23/19 18:10 05/23/19 18:10 <SapphiremosheAmarilismalvin - Last Filed: 05/23/19 20:06> - Lab Data Result diagrams: 05/23/19 18:10 05/23/19 18:10 - Radiology Data #1 Image(s): Chest Image Reviewed: Yes I have reviewed radiologist's interpretation - CT Data CT Scan: Chest (CTA) Time Received: 20:[address] Reviewed: Yes: I have viewed the radiologist's interpretation - Tissue Perfus/Sepsis Re-Eval Reperfusion Exam Performed: Yes Date Performed: 05/23/19 Time Performed: 21:56 Sepsis Follow-Up: Yes: Respiratory exam, Cardiovascular exam, Capillary refill, Peripheral pulse strength, Peripheral pulse location, Skin exam, Vital Signs <Raghavendra Watkins - Last Filed: 05/23/19 21:56> Vital Signs: 05/23/19 17:39 05/23/19 17:52 05/23/19 18:09 Temperature 98.4 F Temperature Source Oral Pulse Rate [Left Radial] 105 H 111 H Respiratory Rate 20 18 Blood Pressure [Left Arm] 129/79 140/79 Blood Pressure Mean [Left Arm] 95 99 Blood Pressure Source [Left Arm] Automatic Cuff Blood Pressure Position [Left Arm] Sitting Supine 02 Sat by Pulse Oximetry 90 L 90 L 94 L Oxygen Delivery Method Room Air Room Air Room Air Oxygen Flow Rate (LPM) 2 05/23/19 19:30 Temperature Temperature Source Pulse Rate [Left Radial] 94 H Respiratory Rate 20 Blood Pressure [Left Arm] 138/56 L Blood Pressure Mean [Left Arm] 83 Blood Pressure Source [Left Arm] Automatic Cuff Blood Pressure Position [Left Arm] Sitting 02 Sat by Pulse Oximetry 96 Oxygen Delivery Method Room Air Oxygen Flow Rate (LPM) - Lab Data Lab Results 05/23/19 18:10: WBC 13.1 H, RBC 4.48 L, Hgb 13.0 L, Hct 40.2 L, MCV 89.7, MCH 29.0, MCHC 32.3, RDW 13.7, Plt Count 241, MPV 8.8, Neut % (Auto) 78.2, Lymph % (Auto) 14.4, [place] % (Auto) 5.4, Eos % (Auto) 1.7, Baso % (Auto) 0.2, Neut # (Auto) 10.3 H, Lymph # (Auto) 1.9, [place] # (Auto) 0.7, Eos # (Auto) 0.2, Baso # (Auto) 0.0 05/23/19 18:10: Sodium 138, Potassium 4.2, Chloride 104, Carbon Dioxide 21, Anion Gap 17.2 H, BUN 32 H, Creatinine 1.57 H, Estimated Creat Clear 47, Estimated GFR 43 L, Est GFR ( Amer) 52 L, Glucose 171 H, Calcium 9.1, Total Bilirubin 0.9, AST 16, ALT 20, Alkaline Phosphatase 86, Troponin I < 0.02, Total Protein 7.5 D, Albumin 2.7 L, Globulin 4.8 H, Albumin/Globulin Ratio 0.6 L 05/23/19 18:10: Lactate 0.9 05/23/19 18:10: D-Dimer 3020 H* 05/23/19 18:10: B-Natriuretic Peptide 85 Orders (Tests/Meds): ED MEDICATIONS Generic Name Dose Route Start Last Admin Trade Name Freq PRN Reason Stop Dose Admin Albuterol/Ipratropium 3 ml 05/23/19 18:00 Duoneb 3ml Replaced by [facility] 06/22/19 17:59 Q1H KUMAR Albuterol/Ipratropium 3 ml 05/24/19 06:00 Duoneb 3ml Neb 06/23/19 05:59 QIDRT KUMAR Ceftriaxone Sodium 1 gm/ 50 mls @ 100 mls/hr 05/23/19 18:00 05/23/19 19:36 Sodium Chloride IV 06/06/19 17:59 100 mls/hr Q24H KUMAR Administration Protocol Sodium Chloride 250 mls @ 999 mls/hr 05/23/19 19:45 05/23/19 19:42 Sod Chlor 0.9% 1000ml Bag IV 05/23/19 20:00 999 mls/hr .Q16M KUMAR Administration Azithromycin 500 mg/ Sodium 250 mls @ 250 mls/hr 05/23/19 21:15 05/23/19 21:46 Chloride IV 06/06/19 21:14 250 mls/hr Q24H KUMAR Administration Protocol Sodium Chloride 3 ml 05/23/19 17:56 Sodium Chloride 3% 15ml Replaced by [facility] 06/22/19 17:55 ONCE PRN INDUCE SPUTUM [employer]LECTION Discontinued Medications Generic Name Dose Route Start Last Admin Trade Name Freq PRN Reason Stop Dose Admin Ioversol 70 ml 05/23/19 20:23 05/23/19 20:24 Rad-Optiray 350 100ml Vial IV 05/23/19 20:24 70 ml ONCE ONE Administration Protocol Sodium Chloride 50 ml 05/23/19 20:23 05/23/19 20:25 Rad-Ns 50ml Vial IV 05/23/19 20:24 50 ml ONCE ONE Administration ORDERS Category Date Time Status CTA Chest [CT angio chest] Stat Cat Scan 05/23/19 18:39 Taken Blood Culture Stat Micro 05/23/19 18:35 Received Sputum Culture & Gram Stain Stat Micro 05/23/19 17:56 Ordered - Radiology Data #1 IMPRESSION: COPD with chronic changes with atelectasis or infiltrate in both lung bases. Focal density right midlung which could be due to an area of atelectasis, infiltrate or fibrosis or developing nodule. Follow-up recommended Dictated By: Mateo Pacheco MD 05/23/191955 (Raghavendra Sharma) - CT Data Findings Narrative: CT scan interpreted by ad radiologist. Faxed report received and reviewed: No evidence of pulmonary embolism. Right lower lobe airspace disease, such as pneumonia and/or aspiration. Small pericardial effusion. Centrilobular emphysema. (Raghavendra Watkins) - ECG Data Tracing #1 EKG interpreted by Raghavendra Watkins MD: Rhythm: sinus Rate: 94 [place]: normal Ectopy: none Conduction: Right bundle branch block ST Segment Changes: none T Wave Changes: none Q Waves: none No evidence of acute ischemia or injury Prior electrocardiagrams reviewed. No change from prior tracings. (Raghavendra Watkins) Medical Decision Narrative: The patient remained hemodynamically stable and received IV antibiotics, his Cr was close to base line but his dimer was elevated so Iordered a CT PE protocol to rule out Pulmonary embolism. 1999 I discussed Mr. lowery presentation, labs, EKG with incoming physician Dr Watkins. Ct scan PE protocol is pending. Dr Blackman will assume the care of the patient re assess and make a disposition. (Scot Quach) Weakness HPI - General Mode of Arrival: Ambulatory Source of Information: Patient Limitations: No Limitations - History of Present Illness MD Complaint: generalized weakness Onset (ago): day(s) (2 days) Migration: none Relieving factors: none Exacerbating factors: none Associated symptoms: shortness of breath <Scot Quach - Last Filed: 05/23/19 20:06> <Raghavendra Watkins - Last Filed: 05/23/19 21:56> - General Stated complaint: Weakness, feels bad all over Time Seen by Provider: 05/23/19 17:55 - History of Present Illness HPI Narrative: 78 years old white male history of coronary artery disease. 2 days ago he developed cough shortness of breath and generalized weakness. Is having chest pain palpitations hemoptysis nausea vomiting or diarrhea. He denies having numbness tingling loss of urine or bowel control. (Scot Quach) - Related Data Home Medications Medication Instructions Recorded Confirmed Carvedilol [Carvedilol 25mg Tab] 12.5 mg PO BID 12/06/17 05/23/19 Clopidogrel Bisulfate [Plavix 75mg 75 mg PO DAILY 12/06/17 05/23/19 Tab] Sitagliptin Phosphate [Januvia 100 mg PO DAILY 12/06/17 05/23/19 100mg tablet] Isosorbide Mononitrate [Imdur 30mg 30 mg PO DAILY 01/08/19 01/08/19 ER tablet] Simvastatin 40 mg PO HS 01/09/19 05/23/19 Previous Rx's Medication Instructions Recorded Cefdinir [Omnicef 300mg Capsule] 300 mg PO BID #14 cap 01/11/19 Mupirocin [Mupirocin 2% UD oint 1 gm TP TID #7 applic 01/11/19 1gm Topical syr] Allergies Allergy/AdvReac Type Severity Reaction Status Date / Time No Known Allergies Allergy Unverified 11/04/17 15:10 [facility] History I have reviewed the patient's past medical history: Yes Medical History: Reports:: Diabetes Mellitus Type 2, Hypertension Denies:: Cancer, Internal Pacemaker, MRSA Other Medical History: Reports: Arthritis Other Surgeries: Yes: Appendectomy, Cardiac Catheterization, Colonoscopy. No: Pacemaker Amputation: No Fractures: Yes ((L) shoulder) - Social History Smoking Status: Former smoker Tobacco Type: cigarettes # Packs/Day (cigarettes): 3 Alcohol Intake: never Occupational Status: retired Housing: apartment Household Members: none Family Hx:: Diabetes, Heart Attack, Hyperlipidemia, Hypertension, Stroke <Scot Quach - Last Filed: 05/23/19 20:06> - Hepatitis A Screen Attestation statement:: This patient has been screened for Hepatitis A risk factors. ROS Obtained: Yes All systems reviewed & no additional complaints <Scot Quach - Last Filed: 05/23/19 20:06> Physical Exam - General General appearance: alert, in no apparent distress - Head Head exam: atraumatic, normocephalic, normal inspection - Eye Eye exam: Present: normal appearance, PERRL, EOMI - ENT ENT exam: Present: normal exam, normal oropharynx, mucous membranes moist, TM's normal bilaterally, normal external ear exam - Neck Neck exam: Present: normal inspection, full ROM, trachea midline. Absent: meningismus, lymphadenopathy - Chest Chest inspection: Present: normal inspection, symmetric chest wall rise. Absent: tenderness - Respiratory Respiratory exam: Present: other (Fine basilar crackles over the right lung base. ). Absent: respiratory distress, wheezes - Cardiovascular Cardiovascular exam: Present: regular rate, normal rhythm, normal heart sounds. Absent: JVD - Abdominal Exam Abdominal exam: Present: soft, normal bowel sounds. Absent: distention, tenderness, guarding, rebound, rigidity - Extremities Exam Extremities exam: Present: normal inspection, full ROM, normal capillary refill. Absent: calf tenderness - Back Exam Back exam: Present: normal inspection. Absent: tenderness, CVA tenderness (R), CVA tenderness (L) - Neurological Exam Neurological exam: Present: alert, oriented X3, CN II-XII intact, normal gait, motor sensory deficit, reflexes normal - Psychiatric Psychiatric exam: Present: normal affect, normal mood - Skin Skin exam: Present: warm, dry, intact, normal color - Lymphatic Lymphatic Findings: no adenopathy <Scot Quach - Last Filed: 05/23/19 20:06>
[2019-05-23 18:22] LABS: Basophils % 0.2 % (0.1-2.0); Eosinophils # 0.2 K/mm3 (0.0-0.4); Eosinophils % 1.7 % (0.1-12.0); Hematocrit 40.2 % (42.0-52.0); Lymphocytes # 1.9 K/mm3 (0.7-4.5); Lymphocytes % 14.4 % (10-50); Mean Corpuscular HGB Conc 32.3 g/dL (31.8-35.4); Mean Corpuscular Volume 89.7 fl (80-94); Mean Platelet Volume 8.8 fl (7.4-10.4); Monocytes # 0.7 K/mm3 (0.1-1.0); Monocytes % 5.4 % (1.7-9.3); Neutrophils # 10.3 K/mm3 (1.8-7.8); Neutrophils % 78.2 % (37.0-80.0); Platelet Count 241 K/mm3 (142-424); Red Blood Count 4.48 M/mm3 (4.60-6.20); Red Cell Distribution Width 13.7 % (11.5-17.5); White Blood Count 13.1 K/mm3 (4.8-10.8)
[2019-05-23 18:36] LABS: Alanine Aminotransferase 20 U/L (12-78); Albumin Level 2.7 gm/dL (3.4-5.0); Albumin/Globulin Ratio 0.6 (1.1-1.8); Alkaline Phosphatase 86 U/L (46-116); Anion Gap 17.2 mEq/L (5-15); Aspartate Amino Transferase 16 U/L (15-37); Bilirubin,Total 0.9 mg/dL (0.2-1.0); Blood Urea Nitrogen 32 mg/dL (7-18); Calcium 9.1 mg/dL (8.5-10.1); Carbon Dioxide 21 mmol/L (21.0-32.0); Chloride 104 mmol/L (98-107); Globulin 4.8 gm/dl (1.3-3.2); Glucose 171 mg/dL (74-106); Sodium 138 mmol/L (136-145); Total Protein,Serum 7.5 gm/dL (6.4-8.2)
--- NOTE | 2019-05-24 07:28 | Pharmacy Consult Notes ---
[facility] Pharmacy VTE Monitoring - Patient Demographics Admission date: 05/23/19 Report Date: 05/24/19 Time: 07:27 Allergies/Adverse Reactions: Patient Allergies No Known Allergies Allergy (Unverified 11/04/17 15:10) Height: 1.8 m Weight: 83.688 kg Patient Problems: Current Active Problems (Updated 05/23/19 @ 21:10 by Raghavendra Watkins MD) Elevated d-dimer (Acute) Renal insufficiency (Acute) Community acquired pneumonia (Acute) - VTE Risk Labs: VTE Related Lab Results Hgb 13.0 g/dL (14.1-18.0) L 05/23/19 18:10 Hct 40.2 % (42.0-52.0) L 05/23/19 18:10 Plt Count 241 K/mm3 (142-424) 05/23/19 18:10 BUN 32 mg/dL (7-18) H 05/23/19 18:10 Creatinine 1.57 mg/dL (0.70-1.30) H 05/23/19 18:10 Estimated Creat Clear 47 mL/min (50-200) 05/23/19 18:10 Was VTE Risk Assessment Performed: Yes VTE Score: 2 VTE Risk Level: Very Low Risk - Prophylaxis VTE Prophylaxis Ordered?: Yes Types of VTE Prophylaxis: TEDS Knee High Location of Applied Device: Bilateral Lower Extremeties - VTE Diagnosis Confirmed Treatment or plan recommended: Continue Current Treatment
--- NOTE | 2019-05-24 08:11 | History & Physical Report ---
*Admission Date: 05/23/19 *Chief complaint: Shortness of air and weakness *History of present illness: 78-year-old white male with emphysema and history of diabetes-type II-who came to the emergency department with a complaint of global weakness and cough. Found to be mildly dehydrated, also found to have infiltrate in the right lower and middle lung field, admitted to hospital for IV therapy. [facility] History I have reviewed the patient's past medical history: Yes Medical History: Reports:: Diabetes Mellitus Type 2, Hyperlipidemia, Hypertension Denies:: Cancer, Diabetes Mellitus Type 1, Internal Pacemaker, MRSA *Have you ever received a pneumonia vaccine?: Yes *Have you received a flu vaccine this season?: Yes Other Medical History: Reports: Arthritis Other Surgeries: Yes: Appendectomy, Cardiac Catheterization, Colonoscopy. No: Pacemaker Amputation: No Fractures: Yes ((L) shoulder) - *Social History Educational Level: Completed College Smoking Status: Former smoker Tobacco Type: cigarettes # Packs/Day (cigarettes): 3 #Yrs smoked (if former smoker): 20 Smoking End Date: 27 YEARS AGO Alcohol Intake: never *Occupational Status:: retired Housing: apartment Household Members: none *Travel in the last 8 weeks: None - Psychiatric History Expresses thoughts of harming self/others: None Suicide Plan Description: No Plan Family Hx:: Diabetes, Stroke Review of Systems - Review of Systems Review of systems:: pertinent systems reviewed and negative unless documented below - Constitutional Denies anorexia, Denies body ache(s), Denies daytime sleepiness - Eyes Denies blind spots, Denies blurry vision, Denies change in vision - ENT Denies abnormal hearing - *Cardiovascular Reports shortness of breath, Reports shortness of breath with activity, Denies chest pain, Denies chest pain at rest, Denies excessive sweating, Denies irregular heart rhythm, Denies leg swelling, Denies leg sores - *Respiratory Reports change in phlegm color, Reports chest congestion, Reports cough, Reports shortness of breath - *Gastrointestinal Denies abdominal pain, Denies change in stools - *Genitourinary Denies difficulty urinating - *Musculoskeletal Denies abnormal walking - Integumentary/Breasts Denies acne Meds Home Medications Medication Instructions Recorded Confirmed Type Carvedilol [Carvedilol 25mg Tab] 12.5 mg PO BID 12/06/17 05/23/19 History Clopidogrel Bisulfate [Plavix 75mg 75 mg PO DAILY 12/06/17 05/23/19 History Tab] Sitagliptin Phosphate [Januvia 100 mg PO DAILY 12/06/17 05/23/19 History 100mg tablet] Simvastatin 40 mg PO HS 01/09/19 05/23/19 History Allergies Allergy/AdvReac Type Severity Reaction Status Date / Time No Known Allergies Allergy Unverified 11/04/17 15:10 Exam Vital signs and Labs for Last 24 Hours: Temp Pulse Resp BP Pulse Ox 99.1 F 81 20 141/65 H 90 L 05/24/19 07:50 05/24/19 07:50 05/24/19 07:50 05/24/19 07:50 05/24/19 07:50 Laboratory Results - last 24 hr 05/23/19 18:10: WBC 13.1 H, RBC 4.48 L, Hgb 13.0 L, Hct 40.2 L, MCV 89.7, MCH 29.0, MCHC 32.3, RDW 13.7, Plt Count 241, MPV 8.8, Neut % (Auto) 78.2, Lymph % (Auto) 14.4, [place] % (Auto) 5.4, Eos % (Auto) 1.7, Baso % (Auto) 0.2, Neut # (Auto) 10.3 H, Lymph # (Auto) 1.9, [place] # (Auto) 0.7, Eos # (Auto) 0.2, Baso # (Auto) 0.0 05/23/19 18:10: Sodium 138, Potassium 4.2, Chloride 104, Carbon Dioxide 21, Anion Gap 17.2 H, BUN 32 H, Creatinine 1.57 H, Estimated Creat Clear 47, Estimated GFR 43 L, Est GFR ( Amer) 52 L, Glucose 171 H, Calcium 9.1, Total Bilirubin 0.9, AST 16, ALT 20, Alkaline Phosphatase 86, Troponin I < 0.02, Total Protein 7.5 D, Albumin 2.7 L, Globulin 4.8 H, Albumin/Globulin Ratio 0.6 L 05/23/19 18:10: Lactate 0.9 05/23/19 18:10: D-Dimer 3020 H* 05/23/19 18:10: B-Natriuretic Peptide 85 05/24/19 06:33: POC Glucose 152 H I & O for Last 24 hours: Intake & Output 05/21/19 05/22/19 05/23/19 05/24/19 11:59 11:59 11:59 11:59 Intake Total 301 / 301 Output Total 450 / 450 Balance -149 / -149 Weight 184 lb 8.007 oz Narrative: Patient is awake, alert, oriented x3. Oropharynx clear, no JVD. Heart rate regular. Anterior lung george are clear, posterior lung george have rhonchi and crackles in the right middle and lower lung field but better air movement than on admission exam recorded by ER physician. No edema or clubbing. Patient is moving all extremity as well. Assessment and Plan (1) Community acquired pneumonia Current visit: Yes Status: Acute Qualifiers: Laterality: right Lung location: lower lobe of lung Qualified Code(s): J18.1 - Lobar pneumonia, unspecified organism Category: Medical Code(s): J18.9 - Pneumonia, unspecified organism Agree with admission. Continue IV therapy. (2) Renal insufficiency Current visit: Yes Status: Acute Category: Medical Code(s): N28.9 - Disorder of kidney and ureter, unspecified (3) Diabetes type 2, controlled Current visit: No Status: Chronic Category: Medical Code(s): E11.9 - Type 2 diabetes mellitus without complications Improving, check labs tomorrow, probable discharge home tomorrow if sputum culture obtained.
[2019-05-25 06:58] LABS: Basophils % 0.2 % (0.1-2.0); Eosinophils # 0.3 K/mm3 (0.0-0.4); Eosinophils % 2.7 % (0.1-12.0); Hemoglobin 12.1 g/dL (14.1-18.0); Lymphocytes # 1.6 K/mm3 (0.7-4.5); Lymphocytes % 17.3 % (10-50); Mean Corpuscular HGB Conc 31.1 g/dL (31.8-35.4); Mean Corpuscular Volume 92.9 fl (80-94); Mean Platelet Volume 8.7 fl (7.4-10.4); Monocytes # 0.7 K/mm3 (0.1-1.0); Monocytes % 7.7 % (1.7-9.3); Neutrophils # 6.7 K/mm3 (1.8-7.8); Platelet Count 223 K/mm3 (142-424); Red Cell Distribution Width 13.8 % (11.5-17.5); White Blood Count 9.4 K/mm3 (4.8-10.8)
[2019-05-25 07:15] LABS: Albumin Level 2.2 gm/dL (3.4-5.0); Albumin/Globulin Ratio 0.5 (1.1-1.8); Anion Gap 14.9 mEq/L (5-15); Bilirubin,Total 0.7 mg/dL (0.2-1.0); Calcium 8.6 mg/dL (8.5-10.1); Globulin 4.1 gm/dl (1.3-3.2); Total Protein,Serum 6.3 gm/dL (6.4-8.2)
--- NOTE | 2019-05-25 08:04 | Discharge Summary ---
General - General Admission date:: 05/23/19 Discharge date: 05/25/19 HPI HPI: 78-year-old white male with emphysema and history of diabetes-type II-who came to the emergency department with a complaint of global weakness and cough. Found to be mildly dehydrated, also found to have infiltrate in the right lower and middle lung field, admitted to hospital for IV therapy. Hospital Course Hospital Course: 78-year-old male admitted for pneumonia and dehydration with mild SIERRA. Treated on antibiotics and fluid hydration. Required intermittent oxygen overnight however was feeling significantly better with following day. Given he was hemodynamically stable, without fever for more than 24 hours, and tolerating room air and saturations in the 90s, he was transitioned to oral antibiotics to complete a course of treatment for pneumonia at home. Kidney function returned to baseline. Patient tolerating regular diet. Denied any shortness of breath, chest pain, nausea or vomiting, lethargy or confusion. Medically stable for discharge home. To complete course of antibiotics and follow-up with PCP within the next week. Given samples of Stiolto for use over the next month as he has a history of COPD and currently not using any medications. Objective Vital signs: Temp Pulse Resp BP Pulse Ox 97.9 F 89 16 120/72 91 L 05/25/19 07:59 05/25/19 07:59 05/25/19 07:59 05/25/19 07:59 05/25/19 07:59 Narrative: Patient is awake, alert, oriented x3. No acute distress on room air Oropharynx clear, no JVD. No lymphadenopathy Heart rate regular. No murmurs Anterior lung george are clear, posterior lung george with interval improvement in breath sounds, resolution of rhonchi, persistent crackles in right lower lung field with a fair air movement throughout. No edema or clubbing. Patient is moving all extremitiess well. Results Labs on day of discharge: Labs from last 24 hours 05/25/19 05/25/19 05/25/19 06:15 05:17 05:17 WBC 9.4 D RBC 4.20 L Hgb 12.1 L Hct 39.0 L MCV 92.9 MCH 28.9 MCHC 31.1 L RDW 13.8 Plt Count 223 MPV 8.7 Neut % (Auto) 72.0 Lymph % (Auto) 17.3 [place] % (Auto) 7.7 Eos % (Auto) 2.7 Baso % (Auto) 0.2 Neut # (Auto) 6.7 Lymph # (Auto) 1.6 [place] # (Auto) 0.7 Eos # (Auto) 0.3 Baso # (Auto) 0.0 Sodium 142 Potassium 3.9 Chloride 107 Carbon Dioxide 24 Anion Gap 14.9 BUN 21 H D Creatinine 1.25 D Estimated Creat Clear 56 Estimated GFR 56 L Est GFR ( Amer) 67 D Glucose 135 H POC Glucose 132 H Calcium 8.6 Total Bilirubin 0.7 AST 18 ALT 21 Alkaline Phosphatase 73 Total Protein 6.3 L Albumin 2.2 L D Globulin 4.1 H Albumin/Globulin Ratio 0.5 L 05/24/19 05/24/19 05/24/19 21:41 16:13 11:44 WBC RBC Hgb Hct MCV MCH MCHC RDW Plt Count MPV Neut % (Auto) Lymph % (Auto) [place] % (Auto) Eos % (Auto) Baso % (Auto) Neut # (Auto) Lymph # (Auto) [place] # (Auto) Eos # (Auto) Baso # (Auto) Sodium Potassium Chloride Carbon Dioxide Anion Gap BUN Creatinine Estimated Creat Clear Estimated GFR Est GFR ( Amer) Glucose POC Glucose 190 H 151 H 136 H Calcium Total Bilirubin AST ALT Alkaline Phosphatase Total Protein Albumin Globulin Albumin/Globulin Ratio DS: Diagnosis - Discharge Diagnosis (1) Community acquired pneumonia Status: Acute (2) Renal insufficiency Status: Resolved (3) Diabetes type 2, controlled Status: Chronic Discharge Plan - Patient Discharge Instructions ACTIVITY: Continue current activity DIET: continue same diet Patient Instructions: Pneumonia-Adult - Follow up Plan Follow up with: Nigel Wellington MD [Primary Care Provider] - Disposition: Home, Self-Residential Medications: Home Medications Medication Instructions Recorded Confirmed Type Carvedilol [Carvedilol 25mg Tab] 12.5 mg PO BID 12/06/17 05/23/19 History Clopidogrel Bisulfate [Plavix 75mg 75 mg PO DAILY 12/06/17 05/23/19 History Tab] Sitagliptin Phosphate [Januvia 100 mg PO DAILY 12/06/17 05/23/19 History 100mg tablet] Simvastatin 40 mg PO HS 01/09/19 05/23/19 History Azithromycin [Azithromycin 500mg 500 mg PO DAILY 1 Days #1 tab 05/25/19 Rx Tab] Cefdinir [Omnicef 300mg Capsule] 300 mg PO BID 8 Days #16 cap 05/25/19 Rx predniSONE [Deltasone 10mg tablet] 40 mg PO DAILY 5 Days #20 tab 05/25/19 Rx Prescriptions/Medication Reconciliation: New predniSONE [Deltasone 10mg tablet] 40 mg PO DAILY 5 Days #20 tab Azithromycin [Azithromycin 500mg Tab] 500 mg PO DAILY 1 Days #1 tab Cefdinir [Omnicef 300mg Capsule] 300 mg PO BID 8 Days #16 cap Continued Sitagliptin Phosphate [Januvia 100mg tablet] 100 mg PO DAILY Clopidogrel Bisulfate [Plavix 75mg Tab] 75 mg PO DAILY Carvedilol [Carvedilol 25mg Tab] 12.5 mg PO BID Simvastatin 40 mg PO HS
== END 2019-05-25 09:52 | disposition home or self-care (01) ==
LOC: ER 17:37 → 2ND 17:37
PROVIDERS: ADMIT Emergency Medicine; ATTEND Internal Medicine Adolescent Medicine
DX: E11.9 Type 2 diabetes mellitus without complications; Z79.899 Other long term (current) drug therapy; N28.9 Disorder of kidney and ureter, unspecified; I10 Essential (primary) hypertension; R79.1 Abnormal coagulation profile; J18.1 Lobar pneumonia, unspecified organism
CPT/HCPCS: 36415; 71020; 71046; 71275; 80053; 82962; 83605; 83880; 84484; 85025; 85378; 87040; 93005; 94640; 94760; 94761; 96365; 96367; 99285; G0378; J0456; Q9967

== ENCOUNTER → 2019-06-04 10:44 | Outpatient (CLI) | payer MEDICARE, SELFPAY ==
[2019-06-04 12:25] LABS: Anion Gap 13.7 mEq/L (5-15); Blood Urea Nitrogen 27 mg/dL (7-18); Calcium 9.1 mg/dL (8.5-10.1); Carbon Dioxide 25 mmol/L (21.0-32.0); Chloride 106 mmol/L (98-107); Creatinine,Serum 1.46 mg/dL (0.70-1.30); Estimated Glomerular Filt Rate 46 ml/min (>60); GFR (African American) 56 ML/MIN (>60); Glucose 200 mg/dL (74-106); Potassium 4.7 mmoL/L (3.5-5.1); Sodium 140 mmol/L (136-145)
== END ==
PROVIDERS: Visit Provider Internal Medicine Adolescent Medicine
DX: R53.83 Other fatigue (principal)
CPT/HCPCS: 36415; 80048

== ENCOUNTER → 2019-09-20 15:25 | Outpatient (CLI) | payer MEDICARE, SELFPAY ==
[2019-09-20 15:31] LABS: Microscopic, Urine URINE MICROSCOPIC (MICROSCOPIC)
[2019-09-20 15:42] LABS: Appearance,Urine CLEAR (Clear); Bilirubin,Urine Negative (Negative); Blood, Urine Negative (Negative); Color,Urine YELLOW (Yellow); Glucose,Urine (UA) 3+ (Negative); Ketones,Urine Negative (Negative); Leukocyte Esterase,Urine Negative (Negative); Nitrate,Urine Negative (Negative); Protein,Urine Negative (Negative); Specific Gravity, Urine 1.015 (1.005-1.030); Urobilinogen,Urine 0.2 EU/dl (0.2)
[2019-09-23 11:07] LABS: Neisseria gonorrhoeae, NAA Negative (Negative)
== END ==
PROVIDERS: Visit Provider Internal Medicine Adolescent Medicine
DX: R39.11 Hesitancy of micturition (principal); Z20.2 Contact with and (suspected) exposure to infections with a predominantly sexual mode of transmission
CPT/HCPCS: 81001; 87086; 87491; 87591

== ENCOUNTER → 2019-12-17 12:17 | Outpatient (CLI) | payer MEDICARE, SELFPAY ==
[2019-12-17 13:06] LABS: Basophils % 0.5 % (0.1-2.0); Eosinophils # 0.2 K/mm3 (0.0-0.4); Hematocrit 47.2 % (42.0-52.0); Hemoglobin 15.2 g/dL (14.1-18.0); Lymphocytes # 2.1 K/mm3 (0.7-4.5); Lymphocytes % 33.8 % (10-50); Mean Corpuscular HGB Conc 32.3 g/dL (31.8-35.4); Mean Corpuscular Hemoglobin 29.2 pg (27.0-31.2); Mean Corpuscular Volume 90.5 fl (80-94); Mean Platelet Volume 8.9 fl (7.4-10.4); Monocytes # 0.5 K/mm3 (0.1-1.0); Monocytes % 7.3 % (1.7-9.3); Neutrophils # 3.5 K/mm3 (1.8-7.8); Neutrophils % 55.4 % (37.0-80.0); Platelet Count 155 K/mm3 (142-424); Red Blood Count 5.22 M/mm3 (4.60-6.20); Red Cell Distribution Width 14.9 % (11.5-17.5); White Blood Count 6.2 K/mm3 (4.8-10.8)
[2019-12-17 14:30] LABS: Hemoglobin A1C 7.1 % (0.0-7.0)
[2019-12-17 15:29] LABS: Alanine Aminotransferase 29 U/L (12-78); Albumin Level 4.1 gm/dL (3.4-5.0); Albumin/Globulin Ratio 1.4 (1.1-1.8); Alkaline Phosphatase 60 U/L (46-116); Aspartate Amino Transferase 18 U/L (15-37); Bilirubin,Total 0.8 mg/dL (0.2-1.0); Blood Urea Nitrogen 20 mg/dL (7-18); Calcium 9.4 mg/dL (8.5-10.1); Carbon Dioxide 30 mmol/L (21.0-32.0); Chloride 106 mmol/L (98-107); Creatinine,Serum 1.55 mg/dL (0.70-1.30); Estimated Glomerular Filt Rate 43 ml/min (>60); GFR (African American) 52 ML/MIN (>60); Glucose 145 mg/dL (74-106); Sodium 145 mmol/L (136-145); Total Protein,Serum 7.1 gm/dL (6.4-8.2)
[2019-12-18 05:09] LABS: Hep A Ab, IgM Negative (Negative); Hepatitis B Core Antibody IgM Negative (Negative); Hepatitis B Surface Antigen Negative (Negative)
[2019-12-18 11:05] LABS: HIV Screen 4th Generation wRfx Non Reactive (Non Reactive); Hepatitis C Antibody <0.1 s/co ratio (0.0-0.9); Vitamin B12 415 pg/mL (232-1245); Vitamin D 25 Hydroxy 17.8 ng/mL (30.0-100.0)
[2019-12-21 05:30] LABS: Treponema pallidum Ab (FTA-ABS Non Reactive (Non Reactive)
[2019-12-21 05:31] LABS: Neisseria gonorrhoeae, NAA Negative (Negative)
== END ==
PROVIDERS: Visit Provider Internal Medicine Adolescent Medicine
DX: Z20.2 Contact with and (suspected) exposure to infections with a predominantly sexual mode of transmission (principal); G56.23 Lesion of ulnar nerve, bilateral upper limbs; E55.9 Vitamin D deficiency, unspecified; Z11.3 Encounter for screening for infections with a predominantly sexual mode of transmission; Z79.899 Other long term (current) drug therapy; Z11.4 Encounter for screening for human immunodeficiency virus [HIV]; Z20.828 Contact with and (suspected) exposure to other viral communicable diseases; Z11.8 Encounter for screening for other infectious and parasitic diseases; Z72.51 High risk heterosexual behavior; R94.5 Abnormal results of liver function studies
CPT/HCPCS: 36415; 80053; 80074; 82607; 82652; 83036; 85025; 86703; 86780; 87491; 87591; G0432

== ENCOUNTER → 2020-01-03 09:50 | Outpatient (POV) | payer MEDICARE, SELFPAY | PROVIDERS: PCP Internal Medicine Adolescent Medicine; Visit Provider Specialist | DX: M79.642 Pain in left hand (principal); M79.641 Pain in right hand; R20.0 Anesthesia of skin | CPT/HCPCS: 95886; 95910 ==

== ENCOUNTER → 2020-03-10 11:02 | Outpatient (CLI) | payer MEDICARE, SELFPAY ==
[2020-03-11 11:18] LABS: PSA, Free 2.48 ng/mL; Prostate Specific Ag 9.3 ng/mL (0.0-4.0)
== END ==
PROVIDERS: Visit Provider Urology
DX: R97.20 Elevated prostate specific antigen [PSA] (principal); R31.0 Gross hematuria
CPT/HCPCS: 36415; 84153; 84154; 87086

== ENCOUNTER 2020-03-13 08:33 | Day surgery (SDC) | payer MEDICARE, SELFPAY ==
[2020-03-10 14:05] VITALS: BMI 25.7
[2020-03-13 08:56] VITALS: BP 140/75; PULSE 99; RESP 20; TEMP 36.6; O2SAT 98
[2020-03-13 09:16] LABS: POC Glucose,Bedside 215 (70-110)
[2020-03-13 10:10] VITALS: BP 130/70; PULSE 79; RESP 18; TEMP 36.6; O2SAT 97
--- NOTE | 2020-03-13 10:24 | [facility].OPNOTE ---
Date of procedure: 03/13/20 Pre-op Diagnosis:: Recurrent gross hematuria Post-op Diagnosis:: Hematuria secondary to BPH Procedure performed:: Cystourethroscopy Surgeon:: Billy Delgado MD Anesthesia: local Estimated blood loss (mL): 0 Clinical Note:: 79-year-old white male with a recurrent gross hematuria. Recent CT scan shows an enlarged prostate but no masses or stones. He presents for cystoscopic evaluation. His urine has cleared over the weekend with hydration and rest. Operative findings:: Trilobar hyperplasia with enlarged median lobe and bladder changes consistent with bladder outlet obstruction. No evidence of bladder tumor. Operative note:: Patient taken to the operating room after informed consent was obtained. On the stretcher he was prepped and draped in the standard surgical fashion and 2% lidocaine placed into the urethra and clamped for 5 minutes. After 5 minutes the clamp was removed and the 16 Maltese flexible cystoscope introduced into the at the meatus. There is little bit of stenosis distally which the scope traversed without problem. Cystoscope passed to the prostatic urethra showed trilobar hyperplasia and prostatic friability. The bladder was entered and examined in a systematic fashion. There is moderate trabeculation present diffusely. There is no evidence of bladder tumors. Couple of cellules were noted. The ureteral orifices were in the normal anatomic position with clear reflux of urine. The scope was retroflexed showing a enlarged and friable median lobe. Scope then removed and there was a little bit of friability noted as well in the pendulous urethra. Patient tolerated procedure well without complications. We discussed the findings and he is to continue the finasteride daily. Condition: stable Disposition: observation Specimens:: None Complications:: None
== END 2020-03-13 10:07 | disposition home or self-care (01) ==
PROVIDERS: PCP Internal Medicine Adolescent Medicine; Visit Provider Urology
DX: R31.0 Gross hematuria (principal); N40.1 Benign prostatic hyperplasia with lower urinary tract symptoms; Z79.899 Other long term (current) drug therapy
CPT/HCPCS: 52000; 82962

== ENCOUNTER → 2020-09-12 13:53 | Outpatient (CLI) | payer MEDICARE, SELFPAY ==
[2020-09-14 11:29] LABS: PSA, Free 0.88 ng/mL; Prostate Specific Ag 3.7 ng/mL (0.0-4.0)
== END ==
PROVIDERS: Visit Provider Urology
DX: R97.20 Elevated prostate specific antigen [PSA] (principal)
CPT/HCPCS: 36415; 84153; 84154

== ENCOUNTER → 2021-02-12 16:09 | Outpatient (CLI) | payer MEDICARE, SELFPAY ==
[2021-02-12 16:29] LABS: Basophils % 0.5 % (0.1-2.0); Eosinophils # 0.3 K/mm3 (0.0-0.4); Eosinophils % 4.8 % (0.1-12.0); Hematocrit 44.1 % (42.0-52.0); Hemoglobin 14.7 g/dL (14.1-18.0); Lymphocytes # 2.6 K/mm3 (0.7-4.5); Lymphocytes % 37.9 % (10-50); Mean Corpuscular HGB Conc 33.3 g/dL (31.8-35.4); Mean Corpuscular Hemoglobin 29.7 pg (27.0-31.2); Mean Corpuscular Volume 89.3 fl (80-94); Mean Platelet Volume 9.1 fl (7.4-10.4); Monocytes # 0.4 K/mm3 (0.1-1.0); Monocytes % 5.7 % (1.7-9.3); Neutrophils # 3.5 K/mm3 (1.8-7.8); Neutrophils % 51.2 % (37.0-80.0); Platelet Count 177 K/mm3 (142-424); Red Blood Count 4.93 M/mm3 (4.60-6.20); Red Cell Distribution Width 14.4 % (11.5-17.5); White Blood Count 6.7 K/mm3 (4.8-10.8)
[2021-02-12 17:07] LABS: Alanine Aminotransferase 20 U/L (12-78); Albumin Level 4.2 g/dl (3.5-5.0); Albumin/Globulin Ratio 1.7 (1.1-1.8); Alkaline Phosphatase 61 U/L (38-126); Anion Gap 11.1 mEq/L (5-15); Aspartate Amino Transferase 25 U/L (17-59); Bilirubin,Total 0.9 mg/dl (0.2-1.3); Blood Urea Nitrogen 20 mg/dl (9-20); Calcium 10.1 mg/dl (8.4-10.2); Carbon Dioxide 29 mmol/L (22.0-30.0); Chloride 105 mmol/L (98-107); Chol/HDL Ratio 7.4 (1-3.5); Cholesterol 200 mg/dl (140-200); Estimated Glomerular Filt Rate 53 ml/min (>60); GFR (African American) 64 ML/MIN (>60); Globulin 2.5 g/dL (1.3-3.2); Glucose 131 mg/dl (74-100); HDL Cholesterol 27 mg/dl (40-60); Potassium 5.1 mmoL/L (3.5-5.1); Sodium 140 mmol/L (136-145); Total Protein,Serum 6.7 g/dl (6.3-8.2); Triglycerides 231 mg/dl (30-150); VLDL Cholesterol 46 mg/dL (0-40)
[2021-02-12 17:09] LABS: Hemoglobin A1C 8.9 % (4.0-6.0)
[2021-02-12 17:18] LABS: Direct LDL Cholesterol 131.16 mg/dL (100-129)
[2021-02-14 18:05] LABS: Prostate Specific Ag 5.2 ng/mL (0.0-4.0)
== END ==
PROVIDERS: Visit Provider Urology
DX: R97.20 Elevated prostate specific antigen [PSA] (principal); E11.9 Type 2 diabetes mellitus without complications; I25.10 Atherosclerotic heart disease of native coronary artery without angina pectoris; Z79.84 Long term (current) use of oral hypoglycemic drugs
CPT/HCPCS: 36415; 80053; 80061; 83036; 84153; 84154; 85025